=== PATIENT | female | born 2005 | race Caucasian/White ===

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

== ENCOUNTER 2024-05-06 06:24 | Emergency (ER) | payer MEDICAID, OTHER ==
--- NOTE | 2024-05-06 07:04 | ED Physician Documentation ---
PD HPI URI - Stated complaint Stated Complaint: SORE THROAT - Chief complaint Chief Complaint: Heent - History obtained from History obtained from: Patient - History of Present Illness Timing - onset: Today, Last night Timing duration: Days (1) Timing details: Abrupt onset, Still present Associated symptoms: Chills, Nasal congestion, Sore throat. No: Fever, Dry cough, Dyspnea Contributing factors: No: Immunocompromised Similar symptoms before: Has not had sx before Review of Systems Constitutional: reports: Chills, Myalgias Throat: reports: Sore throat Respiratory: denies: Cough PD PAST MEDICAL HISTORY - Past Medical History Endocrine/Autoimmune: None - Past Surgical History Past Surgical History: No - Present Medications Home Medications: Ambulatory Orders Medication Instructions Recorded Confirmed No Known Home Medications 10/12/17 05/06/24 - Allergies Allergies/Adverse Reactions: Allergies Allergy/AdvReac Type Severity Reaction Status Date / Time No Known Drug Allergies Allergy Verified 10/12/17 18:12 - Social History Does the pt smoke?: No Smoking Status: Never smoker Does the pt drink ETOH?: No Does the pt have substance abuse?: No - Immunizations Immunizations are current?: Yes - POLST Patient has POLST: No PD ED PE NORMAL - Vitals Vital signs reviewed: Yes - General General: Alert and oriented X 3, No acute distress, Well developed/nourished - HEENT HEENT: Ears normal, Moist mucous membranes. No: Pharynx benign (mild redness without focal swelling nor exudate. ) - Neck Neck: Supple, no meningeal sign, No adenopathy - Cardiac Cardiac: RRR, No murmur - Respiratory Respiratory: Clear bilaterally - Derm Derm: Normal color, Warm and dry Results - Vitals Vitals: Vital Signs - 24 hr 05/06/24 05/06/24 06:29 08:14 Temperature 36.6 C 36.7 C Heart Rate 98 80 Respiratory 18 18 Rate Blood Pressure 133/80 H 131/76 H O2 Saturation 99 98 Oxygen O2 Source Room air - Labs Labs: Laboratory Tests 05/06/24 05/06/24 06:30 06:35 Nasal Adenovirus (PCR) NOT DETECTED Nasal B. parapertussis DNA (PCR) NOT DETECTED Nasal Coronavir 229E PCR NOT DETECTED Nasal Coronavir HKU1 PCR NOT DETECTED Nasal Coronavir NL63 PCR NOT DETECTED Nasal Coronavir OC43 PCR NOT DETECTED Nasal Enterovir/Rhinovir PCR DETECTED A Nasal Influenza B PCR NOT DETECTED Nasal Influenza A PCR NOT DETECTED Nasal Parainfluen 1 PCR NOT DETECTED Nasal Parainfluen 2 PCR NOT DETECTED Nasal Parainfluen 3 PCR NOT DETECTED Nasal Parainfluen 4 PCR NOT DETECTED Nasal RSV (PCR) NOT DETECTED Nasal B.pertussis DNA PCR NOT DETECTED Nasal C.pneumoniae (PCR) NOT DETECTED Asad Human Metapneumo PCR NOT DETECTED Nasal M.pneumoniae (PCR) NOT DETECTED Nasal SARS-CoV-2 (PCR) NOT DETECTED Group A Strep Rapid Negative PD Medical Decision Making - ED course Complexity details: reviewed results, considered differential (sore throat with exam showing low clinical prob of strep. Rapid strep negative. Rhinovirus on viral panel. Will treat as viral. ), d/w patient Departure - Departure Disposition: 01 Home, Self Care Clinical Impression: Sore throat, Rhinovirus infection Condition: Stable Record reviewed to determine appropriate education?: Yes Instructions: ED Viral Syndrome Comments: YOur rapid strep test is negative. We will do a culture off of that swab and that will result in the next 1 to 2 days. A small percent of the time there can be some bacterial growth or presents that is missed by the rapid strep test. We will call you if there is any positive bacterial growth. Otherwise we will assume viral or allergic etc. Your viral panel test results are showing rthinovirus infection, which is a flu- like oillness and has had folk moderately sick for several days. Likely early infectious process. Off work today makes sense and see how this progresses. Tylenol ibuprofen as needed for pains. Forms: PCP List, Activity restrictions Discharge Date/Time: 05/06/24 08:15
[2024-05-06 07:20] LABS: RAPID STREP SCREEN Negative (Negative)
[2024-05-06] MEDS: ACETAMINOPHEN 325 MG TABLET PO STA (07:25)
[2024-05-06] MEDS: IBUPROFEN 600 MG TABLET PO STA (07:25)
[2024-05-06 08:00] LABS: B. PARAPERTUSSIS- RESP PCR PAN NOT DETECTED; B. PERTUSSIS- RESP PCR PANEL NOT DETECTED; C. PNEUMONIAE- RESP PCR PANEL NOT DETECTED; CORONAVIRUS 229E-RESP PCR NOT DETECTED; CORONAVIRUS HKU1-RESP PCR NOT DETECTED; CORONAVIRUS NL63-RESP PCR NOT DETECTED; CORONAVIRUS OC43-RESP PCR NOT DETECTED; HUMAN METAPNEUMOVIRUS NOT DETECTED; INFLUENZA A- RESP PCR PANEL NOT DETECTED; INFLUENZA B - RESP PCR PANEL NOT DETECTED; M. PNEUMONIAE- RESP PCR PANEL NOT DETECTED; PARAINFLUENZA VIRUS 1 NOT DETECTED; PARAINFLUENZA VIRUS 2 NOT DETECTED; PARAINFLUENZA VIRUS 3 NOT DETECTED; PARAINFLUENZA VIRUS 4 NOT DETECTED; RHINOVIRUS/ENTEROVIRUS DETECTED; RSV- RESP PCR PANEL NOT DETECTED; SARS-CoV-2 -RESP PCR PANEL NOT DETECTED
[2024-05-06 08:25] VITALS: BP 131/76; O2SAT 98
== END 2024-05-06 08:15 | disposition home or self-care (01) ==
LOC: ED 06:24
DX: J02.9 Acute pharyngitis, unspecified (principal); B97.89 Other viral agents as the cause of diseases classified elsewhere
CPT/HCPCS: 87070; 87430; 87633; 99282; 99283; A9270